=== PATIENT | male | born 1970 | race African-American/Black ===

== ENCOUNTER 2017-12-14 20:24 | Emergency (ER) | payer OTHER ==
[~2017-12-14] VITALS: Ht 177.8 cm; Wt 89.8 kg
[2017-12-14] MEDS ORDERED: MOBIC15 MG PO (22:53)
[2017-12-14 23:25] VITALS: BP 127/94
== END 2017-12-14 23:32 | disposition home or self-care (01) ==
LOC: ER 20:24
DX: N50.811 Right testicular pain (principal); N50.89 Other specified disorders of the male genital organs; R10.31 Right lower quadrant pain

== ENCOUNTER 2018-03-19 15:51 | Emergency (ER) | payer OTHER ==
[~2018-03-19] VITALS: Ht 177.8 cm; Wt 88.5 kg
[~2018-03-19 15:51] MED LIST: MOBIC15 MG PO
[2018-03-19] MEDS ORDERED: IBUPROFEN 800800 M1 PO (17:35)
== END 2018-03-19 17:55 | disposition home or self-care (01) ==
LOC: ER 15:51
DX: S43.492A Other sprain of left shoulder joint, initial encounter (principal); S63.697A Other sprain of left little finger, initial encounter; F17.210 Nicotine dependence, cigarettes, uncomplicated; X58.XXXA Exposure to other specified factors, initial encounter; Y92.89 Other specified places as the place of occurrence of the external cause; Y93.89 Activity, other specified; Y99.8 Other external cause status